=== PATIENT | female | born 1980 | race Caucasian/White ===

== ENCOUNTER 2019-06-28 14:21 | Emergency (ER) | payer OTHER ==
[2019-06-28] MEDS ORDERED: KETOROLAC TROMETHAMINE 30 MG/1 ML VIAL IVPUSH ONE (14:35)
[2019-06-28] MEDS ORDERED: SODIUM CHLORIDE 1,000 ML IV STA ×2 (14:35→15:57)
[2019-06-28 14:53] VITALS: BMI 19.5
[2019-06-28] MEDS ORDERED: KETOROLAC TROMETHAMINE 30 MG/1 ML VIAL ONE (15:10)
[2019-06-28 15:23] LABS: EPITHELIAL CELLS MANY /hpf
[2019-06-28] MEDS ORDERED: morphine SULFATE 4 MG/ML VIAL IVPUSH ONE (15:40)
[2019-06-28] MEDS ORDERED: ONDANSETRON 4 MG/2 ML VIAL IVPUSH ONE ×2 (15:40→17:51)
[2019-06-28] MEDS ORDERED: ONDANSETRON 4 MG/2 ML VIAL ONE ×2 (15:44→17:57)
[2019-06-28] MEDS ORDERED: morphine SULFATE 4 MG/ML VIAL ONE (15:44)
[2019-06-28 16:44] LABS: BASO % 0.1 % (0-2.0); HEMOGLOBIN 9.9 GM/dl (10.7-15.3); RBC 3.47 M/mm3 (3.60-5.2)
[2019-06-28 16:49] LABS: EOS % 0.2 % (0-4.5); HEMATOCRIT 29.4 % (32.4-45.2); LYMPH % 6.2 % (8-40); MCH 28.7 pg (25.7-33.7); MCHC 33.8 g/dl (32.0-36.0); MEAN CELL VOLUME 84.9 fl (80-96); MEAN PLT VOLUME 8.4 fl (7.5-11.1); MONO % 4.4 % (3.8-10.2); NEUT % 89.1 % (42.8-82.8); PLATELET COUNT 315 K/MM3 (134-434); RDW 11.6 % (11.6-15.6); WHITE BLOOD COUNT 18.6 K/mm3 (4.0-10.8)
[2019-06-28 16:55] LABS: ALBUMIN 3.7 g/dl (3.4-5.0); BILIRUBIN,TOTAL 0.5 mg/dl (0.2-1); CALCIUM 7.7 mg/dl (8.5-10); CREATININE 0.7 mg/dl (0.55-1.3); POTASSIUM 3.6 mmol/L (3.5-5.1); TOT PROT 5.8 g/dl (6.4-8.2)
--- NOTE | 2019-06-28 17:32 | PDOC ---
Documentation entered by Chavo Villegas SCRIBE, acting as scribe for Sherif Siu MD. Sherif Siu MD: This documentation has been prepared by the doeBakari Aiswarya, SCRIBE, under my direction and personally reviewed by me in its entirety. I confirm that the documentation accurately reflects all work, treatment, procedures, and medical decision making performed by me. History of Present Illness - General Chief Complaint: Pain Stated Complaint: RT FLANK PAIN History Source: Patient Exam Limitations: No Limitations - History of Present Illness Initial Comments: 06/28/19 14:41 The patient is a 38 year old female, with no significant PMH, who presents to the emergency department with right sided back pain that began today. The patient describes the pain as shooting and intermittent in nature, located to the right back side, no relief with 600 mg of Advil. She reports pain is exacerbated when taking a deep breath. Patient mentions she had a similar episode 3 years ago. The patient denies chest pain, shortness of breath, headache and dizziness.Denies fever, chills, nausea, vomit, diarrhea and constipation.Denies dysuria, frequency, urgency and hematuria. Similar episode 3 years ago, diagnosed with possible kidney stone at an urgent care but no imaging studies done. No fall or trauma. Allergies: NKDA Past surgical history: None reported Social history: None reported PCP: None reported 06/28/19 17:26 Past History - Past Medical History Allergies/Adverse Reactions: Allergies Allergy/AdvReac Type Severity Reaction Status Date / Time No Known Allergies Allergy Verified 06/28/19 14:24 Home Medications: Ambulatory Orders NK [No Known Home Medication] 06/28/19 Review of Systems - Review of Systems Able to Perform ROS?: Yes Comments:: 06/28/19 14:43 GENERAL/CONSTITUTIONAL: No fever or chills. No weakness. CARDIOVASCULAR: No chest pain or shortness of breath. RESPIRATORY: No cough, wheezing, or hemoptysis. GASTROINTESTINAL: No nausea, vomiting, diarrhea or constipation. GENITOURINARY: No dysuria, frequency, or change in urination. MUSCULOSKELETAL: +right sided back pain. No joint or muscle swelling or pain. No neck. SKIN: No rash NEUROLOGIC: No headache, vertigo, loss of consciousness, or change in strength/ sensation. ALLERGIC/IMMUNOLOGIC: No hives or skin allergy. *Physical Exam - Vital Signs Last Vital Signs Temp Pulse Resp BP Pulse Ox 97.3 F L 59 L 20 139/93 100 06/28/19 14:22 06/28/19 14:22 06/28/19 14:22 06/28/19 14:22 06/28/19 14:22 - Physical Exam 06/28/19 14:44 GENERAL: Awake, alert, and fully oriented, in no acute distress HEAD: No signs of trauma LUNGS: Breath sounds equal, clear to auscultation bilaterally. No wheezes, and no crackles HEART: Regular rate and rhythm, normal S1 and S2, no murmurs, rubs or gallops ABDOMEN: No CVA tenderness. Soft, nontender, normoactive bowel sounds. No guarding, no rebound. No masses NEUROLOGICAL: Normal speech. SKIN: Warm, Dry, normal turgor, no rashes or lesions noted. ED Treatment Course - LABORATORY CBC & Chemistry Diagram: 06/28/19 16:35 06/28/19 16:35 - ADDITIONAL ORDERS Additional order review: Laboratory Results 06/28/19 06/28/19 06/28/19 16:35 14:49 14:49 Sodium 135 L Potassium 3.6 Chloride 107 Carbon Dioxide 21 Anion Gap 7 L BUN 14.0 Creatinine 0.7 Est GFR (CKD-EPI)AfAm 127.39 Est GFR (CKD-EPI)NonAf 109.91 Random Glucose 116 H Calcium 7.7 L Total Bilirubin 0.5 AST 23 ALT 13 Alkaline Phosphatase 30 L Total Protein 5.8 L Albumin 3.7 Urine Color Yellow Urine Appearance Clear Urine pH 5.0 Urine Protein Trace Urine Glucose (UA) Negative Urine Ketones Negative Urine Blood Trace-intact Urine Nitrite Positive H Urine Bilirubin Negative Urine Urobilinogen 0.2 Ur Leukocyte Esterase Negative Urine RBC 2-5 Urine WBC 2-5 Ur Transition Epith Cell Many Urine Bacteria Moderate Urine HCG, Qual Negative 06/28/19 16:35 RBC 3.47 L MCV 84.9 MCHC 33.8 RDW 11.6 MPV 8.4 Neutrophils % 89.1 H Lymphocytes % 6.2 L Monocytes % 4.4 Eosinophils % 0.2 Basophils % 0.1 - RADIOLOGY Radiology Studies Ordered: Category Date Time Status SPIRAL- RENAL-STONE CT [CT] Stat CT Scan 06/28/19 14:35 Taken - Medications Given in the ED: ED Medications Discontinued Medications Generic Name Dose Route Start Last Admin Trade Name Marnie PRN Reason Stop Dose Admin Sodium Chloride 1,000 mls @ 1,000 mls/hr 06/28/19 14:35 06/28/19 15:07 Normal Saline - IV 06/28/19 15:34 1,000 mls/hr ASDIR STA Administration Sodium Chloride 1,000 mls @ 1,000 mls/hr 06/28/19 15:57 06/28/19 15:50 Normal Saline - IV 06/28/19 16:56 1,000 mls/hr ASDIR STA Administration Ketorolac Tromethamine 30 mg 06/28/19 14:35 06/28/19 15:08 Toradol Injection - IVPUSH 06/28/19 14:36 30 mg ONCE ONE Administration Morphine Sulfate 4 mg 06/28/19 15:40 06/28/19 15:49 Morphine Sulfate IVPUSH 06/28/19 15:41 4 mg ONCE ONE Administration Ondansetron HCl 4 mg 06/28/19 15:40 06/28/19 15:49 Zofran Injection IVPUSH 06/28/19 15:41 4 mg ONCE ONE Administration ED Progress Note - Progress Note Progress Note: 06/28/19 17:[address] Perez Urologist at [facility] and has accepted patient to ER Dr. 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 No hydronephrosis or nephrolithiasis. H/H low with elevated wbc Also UTI Advised to start antibiotic and will see pt. Pt in agreement with transfer. 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 No evidence of hydronephrosis or nephrolithiasis. Discharge - Discharge Information Problems reviewed: Yes Clinical Impression/Diagnosis: Perinephric hematoma, Angiomyolipoma of right kidney Condition: Guarded Disposition: TRANSFER ACUTE CARE/OTHER HOSP - Admission No - Follow up/Referral - Patient Discharge Instructions - Post Discharge Activity - Transfer to Acute Care Facility Receiving Facility Name: [facility] Accepting Physician:: Dr. Perez
[2019-06-28 17:53] VITALS: BP 102/59; PULSE 74; TEMP 98.2
== END 2019-06-28 18:10 | disposition short-term general hospital (02) ==
LOC: FER 14:21
PROC: 3E03329 Introduction of Other Anti-infective into Peripheral Vein, Percutaneous Approach (ICD-10-PCS; principal; 2019-06-28)
PROC: 3E033NZ Introduction of Analgesics, Hypnotics, Sedatives into Peripheral Vein, Percutaneous Approach (ICD-10-PCS; 2019-06-28)
PROC: 3E0337Z Introduction of Electrolytic and Water Balance Substance into Peripheral Vein, Percutaneous Approach (ICD-10-PCS; 2019-06-28)
PROC: 3E033GC Introduction of Other Therapeutic Substance into Peripheral Vein, Percutaneous Approach (ICD-10-PCS; 2019-06-28)
DX: D17.71 Benign lipomatous neoplasm of kidney (principal); N28.89 Other specified disorders of kidney and ureter; N39.0 Urinary tract infection, site not specified
CPT/HCPCS: 36415; 74176-TC; 80053; 81003; 81015; 84703; 85025; 86850; 86900; 86901; 99283-25; J7030